=== PATIENT | female | born 1985 | race Caucasian/White ===

== ENCOUNTER 2016-05-10 00:06 | Emergency (ER) ==
[2016-05-10 00:20] VITALS: BP 109/64
[2016-05-10] MEDS ORDERED: DECADRON IM ONE (00:33)
--- NOTE | 2016-05-10 00:39 | PROVIDER DOCUMENTATION ---
[facility]-EE General - General Source: patient - History of Present Illness-EENT General EE Location: reports: throat Quality of Pain: reports: aching Severity: reports: moderate Onset/Duration: reports: this afternoon Timing: reports: still present, getting worse Prearrival Treatment: Initiated no prearrival treatment Associated Symptoms: reports: sore throat. denies: cough, fever <Zachary Flowers - Last Filed: 05/10/16 00:36> <Barb Dutta - Last Filed: 05/10/16 01:01> - General Chief Complaint: Sore Throat Stated Complaint: SORE THROAT Time Seen by Provider: 05/10/16 00:15 Allergies/Adverse Reactions: Patient Allergies Allergy/AdvReac Type Severity Reaction Status Date / Time No Known Allergies Allergy Verified 05/10/16 00:15 Home Medications: Home Medication List Medication Instructions Recorded Confirmed Last Taken Type Diphenhyramine/Al&mg Oh/Lido [Mbx 15 ml MT 4XDAY PRN PRN #1 bottle 05/10/16 Unknown Rx Solution] Penicillin V Potassium 500 mg PO BID #20 tablet 05/10/16 Unknown Rx - History of Present Illness-EE General Nature of Presenting Problem: 30 y/o WF presents to the ED with a sore throat that began today 1pm with her losing her voice for 2 days. Pt says it is painful to swallow. (Zachary Flowers) Review of Systems - Adult - REVIEW OF SYSTEMS - ADULT Constitutional: denies: chills, fever Eyes: reports: no symptoms reported Ears, Nose, Mouth & Throat: reports: throat pain. denies: ear pain, sinus problem, throat swelling Cardiovascular: reports: no symptoms reported Respiratory: reports: no symptoms reported Gastrointestinal: reports: no symptoms reported Genitourinary: reports: no symptoms reported Musculoskeletal: reports: no symptoms reported Integumentary: reports: no symptoms reported Neurological: reports: no symptoms reported Psychiatric: reports: no symptoms reported Endocrine: reports: no symptoms reported Hematologic/Lymphatic: reports: no symptoms reported Allergic/Immunologic: reports: no symptoms reported All Other Systems: Reviewed and Negative <Zachary Flowers - Last Filed: 05/10/16 00:36> Past History - Adult - PAST MEDICAL HISTORY-ADULT Review of Records: reports: Old Records Reviewed, Nursing Assessment Review, Medications Reviewed Psychiatric: reports: anxiety - PRIOR SURGERIES/PROCEDURES Surgical/Procedure History: reports: cholecystectomy - IMMUNIZATION STATUS Childhood Immunizations: See Nurse Assessment Flu Vaccine: See Nurse Assessment - SOCIAL HISTORY Smoking: cigarettes, greater than 1 pack/day Living Situation: family <Zachary Flowers - Last Filed: 05/10/16 00:36> Physical Exam- EENT - Physical Exam EENT Initial Vital Signs Reviewed: Yes General Appearance: appears well, alert, no apparent distress Eye Exam: bilateral eye: normal inspection, PERRL, EOMI Ear Exam: bilateral ear: auricle normal, canal normal Nasal Exam: normal inspection. negative: active bleeding Throat Exam: pharynx swelling, pharynx tenderness, tonsillar exudate. negative : dental tenderness Neck: full range of motion, supple, normal inspection, lymphadenopathy Respiratory: lungs clear, normal breath sounds, no pleuratic chest pain, no respiratory distress, no accessory muscle use Cardiovascular: normal peripheral pulses, regular rate, rhythm Abdominal Exam: normal bowel sounds, non tender, soft Extremity: normal range of motion, non-tender, normal gait, normal inspection Integumentary: normal color, normal turgor, warm/dry Neurologic: grossly normal, no motor/sensory deficits Psych/Mental Status: normal mood/affect, normal thought content, normal thought process, oriented x 3 <Zachary Flowers - Last Filed: 05/10/16 00:36> Progress <Zachary Flowers - Last Filed: 05/10/16 00:36> <Barb Dutta - Last Filed: 05/10/16 01:01> - PLAN OF CARE/RESULTS Progress/Plan/Lab Results: Laboratory Tests 05/10/16 00:23 Group A Strep Rapid NEGATIVE Orders Category Date Time Status DIRECT STREP PL Stat Lab 05/10/16 00:23 Completed Dexamethasone [Decadron] Med 05/10/16 00:33 Discontinued 10 mg IM NOW ONE Vital Signs Temp Pulse Resp BP Pulse Ox 05/10/16 00:16 98.9 F 110 H 20 109/64 100 No Known Allergies Allergy (Verified 05/10/16 00:15) Diphenhyramine/Al&mg Oh/Lido [Mbx Solution] 15 ml MT 4XDAY PRN PRN #1 bottle 04/27 Penicillin V Potassium 500 mg PO BID #20 tablet 05/10/16 Laboratory 05/10/16 00:23 Group A Strep Rapid NEGATIVE Discussed results and f/u with pt. (Barb Dutta) Departure <Zachary Flowers - Last Filed: 05/10/16 00:36> - Departure Time of Disposition Order: 00:58 Certified Medical Emergency: Emergent <Barb Dutta - Last Filed: 05/10/16 01:01> - Departure DIAGNOSIS: Pharyngitis Qualifiers: Pharyngitis/tonsillitis etiology: unspecified etiology Qualified Code(s): J02.9 - Acute pharyngitis, unspecified Disposition: HOME 01 Condition: Stable Additional Instructions: Take medications as directed. Follow up with PCP in 5-7 days for further management. ED Follow Up Instructions: You have been treated by a care provider in the Emergency Department. These instructions are being provided to you so you can have an understanding of how to care for yourself upon discharge. Upon discharge from the Emergency Department, you are responsible for making arrangements for follow-up care by a physician of your choice. Take all prescribed medications as directed. Return to the Emergency Department immediately for any new or worsening symptoms. You may call the Physician Referral phone number at [phone] to obtain a list of Physicians who are taking new patients. Prescriptions: Diphenhyramine/Al&mg Oh/Lido [Mbx Solution] 15 ml MT 4XDAY PRN PRN #1 bottle PRN Reason: Pain Penicillin V Potassium 500 mg PO BID #20 tablet Attestation - Scribe Verification/Attestation Scribe:: Zachary Flowers Acting as Scribe for:: Barb Dutta Scribe documention review:: This chart was documented by a scribe and accurately reflects the service the provider performed and the decisions made by the provider. <Zachary Flowers - Last Filed: 05/10/16 00:36> Physician Attestation
== END 2016-05-10 01:06 | disposition home or self-care (01) ==
LOC: P.ED 00:06
DX: J02.9 Acute pharyngitis, unspecified (principal); R22.1 Localized swelling, mass and lump, neck; F17.210 Nicotine dependence, cigarettes, uncomplicated
CPT/HCPCS: 87081; 87430; 96372